=== PATIENT | female | born 1975 | race Caucasian/White ===

== ENCOUNTER 2023-05-27 13:11 | Outpatient (CLI) | payer OTHER, SELFPAY ==
--- NOTE | 2023-05-27 13:17 | MM_ITS ---
WS: [id number] BILATERAL 3D TOMOSYNTHESIS DIGITAL DIAGNOSTIC MAMMOGRAPHY WITH CAD CLINICAL INFORMATION: LEFT BR LUMP HISTORY: Bilateral breast lumps COMPARISON: None. TECHNIQUE: Bilateral CC, MLO, and ML views. FINDINGS: The breasts are composed of heterogeneous fibroglandular density, which can limit the detection of sm all underlying mass lesions. Lobulated asymmetric nodular density with heterogeneous calcifications l ower inner RIGHT breast at the 5:00 position measuring 2.1 x 1.5 CM. Ultrasound of this area is pendi ng. Dense breast tissue upper outer LEFT breast. ULTRASOUND BREAST BILATERAL TECHNIQUE: Ultrasound bilateral breast focused area of concern. CLINICAL INFORMATION: LEFT BR LUMP FINDINGS: RIGHT BREAST: Ultrasound RIGHT breast at the 5:00 position 1 cm from the nipple demonstrates an ovoid hypoechoic heterogeneous lesion with internal vascularity. This has a suspicious appearance. Associa too calcifications. Recommend ultrasound-guided biopsy. In addition, irregular hypoechoic taller than wide shadowing lesion at the 7:00 position 1 cm from th e nipple measuring 11 mm recommend ultrasound-guided biopsy of this lesion. LEFT BREAST: Large simple and slightly complex LEFT breast cysts with internal debris. Breast cyst at the 2:00 position areola measures 3.0 x 3.7 x 1.9 CM. Additional smaller cysts at the 2:00 position 3 cm from the nipple measures 1.1 x 0.9 x 0.8 cm. Addit ional ovoid cyst at the 2:00 position 5 cm from the nipple measures 2.0 x 1.8 x 0.8 cm. MM/[place] [id number] IMPRESSION: BI-RADS: 4-Suspicious Finding-Biopsy Should Be Considered FOLLOW UP: US Guided Biopsy Recommended RECOMMEND ULTRASOUND-GUIDED BIOPSY OF THE 2 SUSPICIOUS RIGHT BREAST LESIONS.
== END 2023-05-27 13:12 | disposition home or self-care (01) ==
PROVIDERS: PCP Family Medicine; Visit Provider Emergency Medicine
DX: N63.14 Unspecified lump in the right breast, lower inner quadrant (principal); N63.13 Unspecified lump in the right breast, lower outer quadrant; N60.02 Solitary cyst of left breast; N63.20 Unspecified lump in the left breast, unspecified quadrant
CPT/HCPCS: 76642; 77062; G0279

== ENCOUNTER → 2023-06-07 08:19 | Outpatient (BNVA) | payer OTHER, SELFPAY | PROVIDERS: PCP Family Medicine; Visit Provider Family Medicine | DX: N63.20 Unspecified lump in the left breast, unspecified quadrant (principal) | CPT/HCPCS: 80053; 80061; 84439; 84443; 85025 ==

== ENCOUNTER 2023-06-09 14:00 | Outpatient (CLI) | payer OTHER, SELFPAY ==
--- NOTE | 2023-06-09 | US_ITS ---
WS: [id number] ULTRASOUND-GUIDED RIGHT BREAST BIOPSY CLINICAL INFORMATION: ABNORMAL US COMPARISON: May 27, 2023 FINDINGS: The procedure including risks, benefits, and complications were discussed with the patient who agreed to proceed. Using sterile technique patient was prepped and draped in the usual sterile fashion. Aft er 1% lidocaine utilizing real-time ultrasound guidance 4 14-gauge cores were obtained of the RIGHT b reast lesion at the 5 o'clock position. Subsequently a titanium clip was placed in the biopsy cavity. Next, four 14-gauge cores were obtained of the RIGHT breast lesion at the 7:00 position 1 cm from the nipple. Titanium clip was placed in the biopsy cavity. No immediate complications. Pathology demonstrates A. Breast, right, at 5:00, 1 cm from nipple, ultrasound-guided biopsy: - Benign breast with fibrocystic changes, fibroadenomatoid changes and apocrine metaplasia. - No malignancy identified. B. Breast, right, at 7:00, 1 cm from nipple, ultrasound-guided biopsy: - Benign breast with fibrocystic changes and apocrine metaplasia (focal). - No malignancy identified. US/[place] [id number] IMPRESSION: 1. Uncomplicated ultrasound-guided RIGHT breast biopsy at the 5:00 and 7:00 po sitions 1 cm from the nipple. 2. The pathology demonstrates benign breast tissue fibrocystic changes and fib roadenomatoid changes. No malignancy identified. 3. Recommend 6 month follow-up RIGHT breast diagnostic mammography and ultraso und. 4. Additional similar-appearing lesion at the 9:00 areola was also visualized today and recommend follow-up in 6 months to confirm stability. BI-RADS: 3-Probably Benign FOLLOW UP: 6 Month Follow-up Recommend 6 month follow-up RIGHT breast diagnostic mammography and ultrasound to confirm stability. Additional similar-appearing lesion at the 9:00 areola wa s also visualized today.
--- NOTE | 2023-06-09 14:45 | US_ITS ---
WS: [id number] ULTRASOUND-GUIDED RIGHT BREAST BIOPSY CLINICAL INFORMATION: ABNORMAL US COMPARISON: May 27, 2023 FINDINGS: The procedure including risks, benefits, and complications were discussed with the patient who agreed to proceed. Using sterile technique patient was prepped and draped in the usual sterile fashion. Aft er 1% lidocaine utilizing real-time ultrasound guidance 4 14-gauge cores were obtained of the RIGHT b reast lesion at the 5 o'clock position. Subsequently a titanium clip was placed in the biopsy cavity. Next, four 14-gauge cores were obtained of the RIGHT breast lesion at the 7:00 position 1 cm from the nipple. Titanium clip was placed in the biopsy cavity. No immediate complications. Pathology demonstrates A. Breast, right, at 5:00, 1 cm from nipple, ultrasound-guided biopsy: - Benign breast with fibrocystic changes, fibroadenomatoid changes and apocrine metaplasia. - No malignancy identified. B. Breast, right, at 7:00, 1 cm from nipple, ultrasound-guided biopsy: - Benign breast with fibrocystic changes and apocrine metaplasia (focal). - No malignancy identified. US/[place] [id number] IMPRESSION: 1. Uncomplicated ultrasound-guided RIGHT breast biopsy at the 5:00 and 7:00 po sitions 1 cm from the nipple. 2. The pathology demonstrates benign breast tissue fibrocystic changes and fib roadenomatoid changes. No malignancy identified. 3. Recommend 6 month follow-up RIGHT breast diagnostic mammography and ultraso und. 4. Additional similar-appearing lesion at the 9:00 areola was also visualized today and recommend follow-up in 6 months to confirm stability. BI-RADS: 3-Probably Benign FOLLOW UP: 6 Month Follow-up Recommend 6 month follow-up RIGHT breast diagnostic mammography and ultrasound to confirm stability. Additional similar-appearing lesion at the 9:00 areola wa s also visualized today.
== END 2023-06-09 14:01 | disposition home or self-care (01) ==
PROVIDERS: PCP Family Medicine; Visit Provider Emergency Medicine
DX: N63.20 Unspecified lump in the left breast, unspecified quadrant (principal)
CPT/HCPCS: 19083; 19084; 88305

== ENCOUNTER 2023-12-30 08:31 | Outpatient (CLI) | payer OTHER, SELFPAY ==
--- NOTE | 2023-12-30 08:36 | MM_ITS ---
WS: [id number] RIGHT 3D TOMOSYNTHESIS DIGITAL MAMMOGRAPHY WITH CAD CLINICAL INFORMATION: mass 6 month f/u HISTORY: 6-month follow-up COMPARISON: 05/27/2023 TECHNIQUE: 3 views of the right breast were obtained. FINDINGS: The right breast is composed of heterogeneous fibroglandular density tissue, which can limit the dete ction of small underlying mass lesions. Previously biopsied lesion is RIGHT breast are stable in appe arance with associated biopsy clips. Ultrasound is pending. ULTRASOUND BREAST RIGHT TECHNIQUE: Ultrasound right breast focused area of concern. CLINICAL INFORMATION: mass 6 month f/u COMPARISON: 06/09/2023 FINDINGS: Ultrasound RIGHT breast. Previously described lesions at the 5:00 7:00 and 9:00 positions are stable in appearance compared to previous. 5:00 and 7:00 lesions were previously biopsied and demonstrated f ibroadenomas. Recommend return to annual screening mammography. IMPRESSION: MM/[place] [id number] BI-RADS: 2-Benign FOLLOW UP: 1 Year Follow-up Recommend return to annual screening mammography.
== END 2023-12-30 08:32 | disposition home or self-care (01) ==
LOC: RAD 08:32
PROVIDERS: PCP Family Medicine; Visit Provider Family Medicine
DX: N63.15 Unspecified lump in the right breast, overlapping quadrants; D24.1 Benign neoplasm of right breast
CPT/HCPCS: 76642; 77061; G0279